=== PATIENT | female | born 1930 | race Caucasian/White ===

== ENCOUNTER 2017-11-08 09:10 | Outpatient (CLI) | payer MEDICARE | END 2017-11-08 09:11 | disposition home or self-care (01) | LOC: BICMAMMO 09:10 | PROVIDERS: ATTEND Family Medicine | DX: Z12.31 Encounter for screening mammogram for malignant neoplasm of breast (principal); R92.1 Mammographic calcification found on diagnostic imaging of breast | CPT/HCPCS: 77063; 77067 ==

== ENCOUNTER 2018-11-21 13:02 | Outpatient (CLI) | payer MEDICARE ==
--- NOTE | 2018-11-21 14:00 | BD ---
EXAM: DEXA bone density examination HISTORY: 88-year-old postmenopausal female for screening COMPARISON: None FINDINGS: L1--bone mineral density 0.768 g/sq cm; T score -2.0 L2--bone mineral density 0.893 g/sq cm; T score -1.2 L3--bone mineral density 0.920 g/sq cm; T score -1.5 L4--bone mineral density 0.960 g/sq cm; T score -0.9 Total L1-L4--bone mineral density 0.891 g/sq cm; T score -1.4 Left femoral neck--bone mineral density0.660; T score -1.7 Total proximal left femur--bone mineral density 0.776; T score -1.4 IMPRESSION: Osteopenia This patient has a 10 year WHO fracture risk of a major osteoporotic fracture of 13% and of a hip fracture of 3.8%.
--- NOTE | 2018-11-21 15:27 | MMO ---
Bilateral MAMMO Bilat Screen [facility]. CLINICAL HISTORY: Patient is 88 years old and is seen for screening. The patient has no family history of breast cancer. The patient has no personal history of cancer. VIEWS: The views performed were: bilateral craniocaudal with tomosynthesis and bilateral mediolateral oblique with tomosynthesis. FILMS COMPARED: The present examination has been compared to prior imaging studies performed at [facility] on 10/28/2014, 10/31/2015, 11/02/2016 and 11/08/2017. MAMMOGRAM FINDINGS: The breasts are heterogeneously dense, which could obscure a lesion on mammography. Benign calcifications are noted bilaterally. There are no suspicious masses, suspicious calcifications, or new areas of architectural distortion. IMPRESSION: A ROUTINE FOLLOW-UP MAMMOGRAM IN 1 YEAR IS RECOMMENDED. THE RESULTS OF THIS EXAM WERE SENT TO THE PATIENT. ACR BI-RADS Category 2 - Benign finding MAMMOGRAPHY NOTE: 1. A negative mammogram report should not delay a biopsy if a dominant of clinically suspicious mass is present. 2. Approximately 10% to 15% of breast cancers are not detected by mammography. 3. Adenosis and dense breasts may obscure an underlying neoplasm.
== END 2018-11-21 13:03 | disposition home or self-care (01) ==
LOC: BICMAMMO 13:02
PROVIDERS: ATTEND Family Medicine
DX: Z12.31 Encounter for screening mammogram for malignant neoplasm of breast (principal); Z13.820 Encounter for screening for osteoporosis; M85.89 Other specified disorders of bone density and structure, multiple sites
CPT/HCPCS: 77063; 77067; 77080

== ENCOUNTER 2019-01-11 07:45 | Outpatient (CLI) | payer MEDICARE ==
--- NOTE | 2019-01-11 09:59 | ULT ---
PELVIC ULTRASOUND: History: Post-menopausal bleeding. FINDINGS: Multiple transabdominal and endovaginal sonographic images of the pelvis were obtained. The ovaries are not visualized on endovaginal or transabdominal imaging. The uterus is only seen on e ndovaginal imaging and demonstrates a slightly heterogeneous appearance and measures 5.8 cm x 3.1 x 2 .3 cm. The endometrial stripe measures 0.4 cm in thickness, but there is fluid seen within the endome trial canal which is abnormal in a post-menopausal female patient. The cervix is not well evaluated o n this examination, but there is heterogeneity in the region of the cervix and a lesion in this regio n cannot be entirely excluded based on provided images. Area of heterogeneity in the region of the ce rvix measures 1.8 cm in greatest dimensions. There are prominent tubular anechoic structures seen adjacent to the uterus bilaterally which do demo nstrate flow on color flow evaluation and are most compatible with mildly dilated pelvic vasculature. No adnexal mass is appreciated. There is no free fluid in the pelvis. IMPRESSION: 1. Fluid in the endometrial canal which is abnormal in a post-menopausal female patient. 2. Heterogeneous mass like area in the region of the cervix measuring 1.8 cm. 3. Nonvisualization of the bilateral ovaries. 4. Dilated and tortuous vasculature within the pelvis bilaterally. Follow up CT scan examination may be beneficial. 5. [employer] consultation is recommended for further evaluation of questioned cervical lesion in additio n to fluid in the endometrial canal which is abnormal in a post-menopausal female patient, and neopla stic process should be excluded. 6. Nonvisualization of the bilateral ovaries. POS: [facility]
== END 2019-01-11 07:46 | disposition home or self-care (01) ==
LOC: BICULT 07:45
PROVIDERS: ATTEND Family Medicine
DX: N95.0 Postmenopausal bleeding (principal); I87.8 Other specified disorders of veins; R93.89 Abnormal findings on diagnostic imaging of other specified body structures
CPT/HCPCS: 76856

== ENCOUNTER 2019-12-31 08:59 | Outpatient (CLI) | payer MEDICARE ==
--- NOTE | 2019-12-31 10:03 | MMO ---
Bilateral MAMMO Bilat Screen [facility]. CLINICAL HISTORY: Patient is 89 years old and is seen for screening. The patient has no family history of breast cancer. The patient has no personal history of cancer. VIEWS: The views performed were: bilateral craniocaudal with tomosynthesis and bilateral mediolateral oblique with tomosynthesis. FILMS COMPARED: The present examination has been compared to prior imaging studies performed at [facility] on 10/31/2015, 11/02/2016, 11/08/2017 and 11/21/2018. This study has been interpreted with the assistance of computer-aided detection. MAMMOGRAM FINDINGS: There are scattered fibroglandular densities. There are stable benign appearing calcifications seen in both breasts. There are no suspicious masses, suspicious calcifications, or new areas of architectural distortion. IMPRESSION: THERE IS NO MAMMOGRAPHIC EVIDENCE OF MALIGNANCY. A ROUTINE FOLLOW-UP MAMMOGRAM IN 1 YEAR IS RECOMMENDED. THE RESULTS OF THIS EXAM WERE SENT TO THE PATIENT. ACR BI-RADS Category 2 - Benign finding MAMMOGRAPHY NOTE: 1. A negative mammogram report should not delay a biopsy if a dominant of clinically suspicious mass is present. 2. Approximately 10% to 15% of breast cancers are not detected by mammography. 3. Adenosis and dense breasts may obscure an underlying neoplasm. Reported by: DAVID CONTE MD Electonically Signed: [id number]
== END 2019-12-31 09:00 | disposition home or self-care (01) ==
LOC: BICMAMMO 08:59
PROVIDERS: ATTEND Family Medicine
DX: Z12.31 Encounter for screening mammogram for malignant neoplasm of breast (principal)
CPT/HCPCS: 77063; 77067

== ENCOUNTER 2020-06-13 22:39 | Emergency (ER) | payer MEDICARE ==
[2020-06-13] MEDS ORDERED: Oxymetazoline HCl 0.05% (30 ML BOT) ONE (23:09)
[2020-06-13 23:28] LABS: #Eosinphils 0.1 thou/uL (0.0-0.7); #Lymphocytes 1.2 thou/uL (1.20-3.40); #Monocytes 0.8 thou/uL (0.11-0.59); #Neutrophils 5.4 thou/uL (1.40-6.50); %Basophils 0.5 % (0.0-1.0); %Eosinophils 1.7 % (0.0-10.0); %Lymphocytes 16.4 % (21.0-51.0); %Monocytes 10.1 % (0.0-10.0); %Neutrophils 71.3 % (42.0-75.0); Mean Corpuscular HGB CONC 32.4 g/dL (32.0-36.0); Mean Corpuscular Hemoglobin 31.7 pg (27.0-31.0); Mean Corpuscular Volume 97.7 fL (78.0-98.0); Mean Platelet Volume 8.3 fL (7.4-10.4); Platelet Count 142 thou/uL (130-400); RBC Distribution Width 14.6 % (11.5-14.5); Red Blood Cell (RBC) Count 3.79 mill/uL (4.20-5.40); White Blood Cell (WBC) Count 7.6 thou/uL (4.8-10.8)
[2020-06-13 23:35] LABS: INR-International Normal Ratio 1.9; PTT 39.5 sec (22.9-36.1); Prothrombin Time 22.3 sec (12.0-14.7)
== END 2020-06-14 00:03 | disposition home or self-care (01) ==
LOC: ERS 22:39
DX: R04.0 Epistaxis (principal); Z79.01 Long term (current) use of anticoagulants; I10 Essential (primary) hypertension; E03.9 Hypothyroidism, unspecified; I48.91 Unspecified atrial fibrillation; G47.30 Sleep apnea, unspecified; Z79.899 Other long term (current) drug therapy
CPT/HCPCS: 36415; 85025; 85610; 85730; 99283

== ENCOUNTER 2020-12-10 09:56 | Inpatient (IN) | payer MEDICARE ==
[2020-12-10 11:41] LABS: #Eosinphils 0.1 thou/uL (0.0-0.7); #Lymphocytes 0.8 thou/uL (1.20-3.40); #Monocytes 1.3 thou/uL (0.11-0.59); #Neutrophils 6.7 thou/uL (1.40-6.50); %Basophils 0.2 % (0.0-1.0); %Eosinophils 1.6 % (0.0-10.0); %Lymphocytes 9.1 % (21.0-51.0); %Monocytes 14.3 % (0.0-10.0); %Neutrophils 74.7 % (42.0-75.0); Hemoglobin 12.2 g/dL (12.0-16.0); Mean Corpuscular HGB CONC 31.9 g/dL (32.0-36.0); Mean Corpuscular Hemoglobin 30.7 pg (27.0-31.0); Mean Corpuscular Volume 96.3 fL (78.0-98.0); Mean Platelet Volume 7.5 fL (7.4-10.4); Platelet Count 185 thou/uL (130-400); RBC Distribution Width 14.5 % (11.5-14.5); Red Blood Cell (RBC) Count 3.97 mill/uL (4.20-5.40); White Blood Cell (WBC) Count 8.9 thou/uL (4.8-10.8)
[2020-12-10 12:04] LABS: ALT (SGPT) 16 U/L (8-55); AST (SGOT) 23 U/L (5-34); Albumin 3.4 g/dL (3.4-4.8); Alkaline Phosphatase 170 U/L (40-110); Anion Gap 9 mmol/L (10-20); BUN (Urea Nitrogen) 12 mg/dL (9.8-20.1); Bilirubin, Total 1.1 mg/dL (0.2-1.2); Calc. Creatinine Clearance 0 mL/min (70-130); Calcium 9.3 mg/dL (7.8-10.44); Carbon Dioxide 32 mmol/L (23-31); Chloride 87 mmol/L (98-107); Globulin 3.2 g/dL (2.4-3.5); Glucose 121 mg/dL (83-110); Protein, Total 6.6 g/dL (5.8-8.1); Sodium 123 mmol/L (136-145)
[2020-12-10] MEDS ORDERED: Ondansetron PF 4 MG/2 ML Vial IVP PRN (13:47)
[2020-12-10] MEDS ORDERED: Senokot S 8.6-50 MG TAB PO PRN (13:47)
[2020-12-10] MEDS ORDERED: Acetaminophen 325 MG TAB PO PRN (13:47)
[2020-12-10] MEDS ORDERED: Iopamidol 370 76% 100 ML VIAL ONE (13:56)
[2020-12-10] MEDS ORDERED: Furosemide 40 MG/4 ML VIAL SLOW IVP SCH (14:00)
[2020-12-10] MEDS ORDERED: Furosemide 40 MG/4 ML VIAL ONE (14:44)
[2020-12-10 16:36] LABS: INR-International Normal Ratio 3.4; Prothrombin Time 34.9 sec (12.0-14.7)
[2020-12-10 16:37] LABS: PTT 53.3 sec (22.9-36.1)
[2020-12-10 20:43] LABS: RBC Count-Automated (BF) 979 /cu.mm; WBC/Nucleated-Auto (BF) 110 uL
[2020-12-10 20:45] LABS: Fluid, Triglycerides 19 mg/dL (Not Available); Pleural Fluid, Amylase Less than 30 U/L (Not Available); Pleural Fluid, Glucose 121 mg/dL; Pleural Fluid, LDH 78 U/L (Not Available); Pleural Fluid, Protein 2.8 g/dL
[2020-12-10 20:48] LABS: Bilirubin Negative (Negative); Blood, Urine 1+ (Negative); Clarity Clear (Clear); Glucose, Urine (Dipstick) Normal (Negative); Ketone, Urine Negative (Negative); Leukocyte 75 Leu/uL (Negative); Nitrite Negative (Negative); Protein, Urine (Dipstick) Negative (Neg-Trace); Specific Gravity, Urine 1.023 (1.002-1.036)
[2020-12-10 20:50] LABS: Bacteria/HPF 1+ HPF (None Seen)
[2020-12-10 21:45] LABS: BF Color Yellow; Body Fluid Source Thoracentesis Fluid; Clarity Clear (Clear); Tube # 1
[2020-12-10 21:47] LABS: BF Segmented Neutrophils 15 %; Cell Count Non Hematic 31 %; Lymphocytes 54 %
[2020-12-10] MEDS: Carvedilol 6.25 MG TAB PO SCH (21:47)
[2020-12-11 06:05] LABS: Band 1 % (5-11); Hemoglobin 12.5 g/dL (12.0-16.0); Lymphocytes 8 % (21-51); MDiff Complete? YES; Mean Platelet Volume 8.2 fL (7.4-10.4); Monocytes 10 % (0-10); Neutrophil 79 % (42-75); Platelet Count 140 thou/uL (130-400); RBC Distribution Width 14.6 % (11.5-14.5); Red Blood Cell (RBC) Count 3.91 mill/uL (4.20-5.40); White Blood Cell (WBC) Count 8.9 thou/uL (4.8-10.8)
[2020-12-11 06:06] LABS: Eosinophils 2 % (0-10); Platelet Morphology Comment Appears Adequate; RBC Morphology Normal
[2020-12-11] MEDS ORDERED: Furosemide 40 MG/4 ML VIAL SLOW IVP SCH (09:00)
[2020-12-11] MEDS ORDERED: Digoxin 0.125 MG TAB PO SCH ×2 (09:00)
[2020-12-11] MEDS ORDERED: Furosemide 40 MG TAB PO SCH (09:00)
[2020-12-11 09:19] LABS: Anion Gap 11 mmol/L (10-20); BUN (Urea Nitrogen) 10 mg/dL (9.8-20.1); Calc. Creatinine Clearance 67 mL/min (70-130); Calcium 9.3 mg/dL (7.8-10.44); Carbon Dioxide 32 mmol/L (23-31); Chloride 90 mmol/L (98-107); Glucose 95 mg/dL (83-110); Potassium 4.6 mmol/L (3.5-5.1); Sodium 128 mmol/L (136-145)
[2020-12-11] MEDS: Carvedilol 6.25 MG TAB PO SCH ×2 (09:38→20:13)
[2020-12-11] MEDS: Potassium Chloride 20 MEQ TAB PO SCH (09:38)
[2020-12-11] MEDS: Amlodipine 5 MG TAB PO SCH (09:41)
[2020-12-11] MEDS: Lisinopril 20 MG TAB PO SCH (09:42)
[2020-12-11] MEDS ORDERED: Warfarin Sodium 7.5 MG TAB PO SCH (17:00)
[2020-12-12 05:22] LABS: Mean Corpuscular HGB CONC 32.3 g/dL (32.0-36.0); Mean Corpuscular Hemoglobin 31.5 pg (27.0-31.0); Mean Corpuscular Volume 97.4 fL (78.0-98.0); Mean Platelet Volume 7.7 fL (7.4-10.4); Platelet Count 163 thou/uL (130-400); RBC Distribution Width 14.4 % (11.5-14.5)
[2020-12-12 05:59] LABS: Anion Gap 11 mmol/L (10-20); BUN (Urea Nitrogen) 14 mg/dL (9.8-20.1); Calc. Creatinine Clearance 72 mL/min (70-130); Carbon Dioxide 28 mmol/L (23-31); Chloride 92 mmol/L (98-107); Glucose 100 mg/dL (83-110); Potassium 5.1 mmol/L (3.5-5.1); Sodium 126 mmol/L (136-145)
[2020-12-12 06:06] LABS: Band 4 % (5-11); Lymphocytes 14 % (21-51); MDiff Complete? YES; Monocytes 11 % (0-10); Neutrophil 71 % (42-75)
[2020-12-12 07:36] LABS: INR-International Normal Ratio 2.2; Prothrombin Time 24.7 sec (12.0-14.7)
[2020-12-12] MEDS: Digoxin 0.125 MG TAB PO SCH (09:13)
[2020-12-12] MEDS: Amlodipine 5 MG TAB PO SCH (09:13)
[2020-12-12] MEDS: Carvedilol 6.25 MG TAB PO SCH ×2 (09:14→19:37)
[2020-12-12] MEDS: Lisinopril 20 MG TAB PO SCH (09:14)
[2020-12-12] MEDS ORDERED: Furosemide 40 MG/4 ML VIAL SLOW IVP SCH (09:15)
[2020-12-12] MEDS: Potassium Chloride 20 MEQ TAB PO SCH (09:15)
[2020-12-12] MEDS ORDERED: Warfarin Sodium 7.5 MG TAB PO SCH (17:00)
[2020-12-13 05:41] LABS: Hemoglobin 11.4 g/dL (12.0-16.0); Mean Corpuscular HGB CONC 32.1 g/dL (32.0-36.0); Mean Corpuscular Hemoglobin 31.6 pg (27.0-31.0); Mean Corpuscular Volume 98.5 fL (78.0-98.0); Mean Platelet Volume 7.7 fL (7.4-10.4); Platelet Count 156 thou/uL (130-400); RBC Distribution Width 14.4 % (11.5-14.5); Red Blood Cell (RBC) Count 3.61 mill/uL (4.20-5.40); White Blood Cell (WBC) Count 9.9 thou/uL (4.8-10.8)
[2020-12-13 05:43] LABS: INR-International Normal Ratio 1.5; Prothrombin Time 18.2 sec (12.0-14.7)
[2020-12-13 05:45] LABS: Anion Gap 9 mmol/L (10-20); BUN (Urea Nitrogen) 16 mg/dL (9.8-20.1); Calc. Creatinine Clearance 71 mL/min (70-130); Calcium 9.6 mg/dL (7.8-10.44); Carbon Dioxide 34 mmol/L (23-31); Chloride 89 mmol/L (98-107); Glucose 110 mg/dL (83-110); Sodium 127 mmol/L (136-145)
[2020-12-13 06:11] LABS: Band 8 % (5-11); Eosinophils 1 % (0-10); Lymphocytes 15 % (21-51); MDiff Complete? YES; Monocytes 7 % (0-10); Neutrophil 68 % (42-75)
[2020-12-13] MEDS ORDERED: Furosemide 40 MG/4 ML VIAL SLOW IVP SCH (07:45)
[2020-12-13] MEDS: Digoxin 0.125 MG TAB PO SCH (07:47)
[2020-12-13] MEDS: Amlodipine 5 MG TAB PO SCH (09:00)
[2020-12-13] MEDS: Carvedilol 6.25 MG TAB PO SCH ×2 (09:00→21:56)
[2020-12-13] MEDS: Lisinopril 20 MG TAB PO SCH (09:00)
[2020-12-13] MEDS: Potassium Chloride 20 MEQ TAB PO SCH (09:00)
[2020-12-13] MEDS ORDERED: Alendronate Sodium 70 mg Tablet PO SCH (15:00)
[2020-12-13] MEDS ORDERED: Warfarin Sodium 3 MG TAB PO SCH (17:00)
[2020-12-13] MEDS ORDERED: Furosemide 20 MG/2 ML VIAL SLOW IVP SCH (17:45)
[2020-12-14] MEDS ORDERED: Furosemide 20 MG/2 ML VIAL SLOW IVP SCH ×2 (01:00→08:45)
[2020-12-14 05:39] LABS: #Basophils 0.1 thou/uL (0.0-0.2); #Eosinphils 0.1 thou/uL (0.0-0.7); #Lymphocytes 0.8 thou/uL (1.20-3.40); #Monocytes 1.3 thou/uL (0.11-0.59); #Neutrophils 10.9 thou/uL (1.40-6.50); %Basophils 0.4 % (0.0-1.0); %Eosinophils 0.4 % (0.0-10.0); %Monocytes 10.1 % (0.0-10.0); Hemoglobin 12.5 g/dL (12.0-16.0); Mean Corpuscular HGB CONC 30.8 g/dL (32.0-36.0); Mean Corpuscular Hemoglobin 30.7 pg (27.0-31.0); Mean Corpuscular Volume 99.7 fL (78.0-98.0); Mean Platelet Volume 7.3 fL (7.4-10.4); Platelet Count 158 thou/uL (130-400); RBC Distribution Width 14.4 % (11.5-14.5); Red Blood Cell (RBC) Count 4.07 mill/uL (4.20-5.40); White Blood Cell (WBC) Count 13.2 thou/uL (4.8-10.8)
[2020-12-14 05:46] LABS: INR-International Normal Ratio 1.7; Prothrombin Time 20.1 sec (12.0-14.7)
[2020-12-14 06:01] LABS: Anion Gap 10 mmol/L (10-20); BUN (Urea Nitrogen) 17 mg/dL (9.8-20.1); Calc. Creatinine Clearance 70 mL/min (70-130); Calcium 9.5 mg/dL (7.8-10.44); Carbon Dioxide 32 mmol/L (23-31); Chloride 89 mmol/L (98-107); Glucose 135 mg/dL (83-110); Potassium 5.1 mmol/L (3.5-5.1); Sodium 126 mmol/L (136-145)
[2020-12-14] MEDS: Digoxin 0.125 MG TAB PO SCH (09:38)
[2020-12-14] MEDS: Cefepime 2 GM in Sodium Chloride 0.9% 100 ML IVPB SCH ×2 (09:38→16:30)
[2020-12-14] MEDS: Potassium Chloride 20 MEQ TAB PO SCH (09:39)
[2020-12-14] MEDS: Furosemide 40 MG/4 ML VIAL SLOW IVP SCH (09:39)
[2020-12-14] MEDS: Carvedilol 6.25 MG TAB PO SCH ×2 (09:39→21:38)
[2020-12-14] MEDS: Amlodipine 5 MG TAB PO SCH (09:40)
[2020-12-14] MEDS: Lisinopril 20 MG TAB PO SCH (09:40)
[2020-12-14 12:10] LABS: Squamous Epithelial 0-3 HPF (0-3); WBC/HPF 0-3 HPF (0-3)
[2020-12-14 12:11] LABS: Bacteria/HPF 1+ HPF (None Seen)
[2020-12-14] MEDS: Warfarin Sodium 7.5 MG TAB PO SCH (16:26)
[2020-12-15] MEDS: Cefepime 2 GM in Sodium Chloride 0.9% 100 ML IVPB SCH ×4 (00:30→23:20)
[2020-12-15] MEDS: Carvedilol 6.25 MG TAB PO SCH ×4 (01:07→21:49)
[2020-12-15 04:55] LABS: #Eosinphils 0.2 thou/uL (0.0-0.7); #Monocytes 1.1 thou/uL (0.11-0.59); #Neutrophils 6.4 thou/uL (1.40-6.50); %Basophils 0.4 % (0.0-1.0); %Eosinophils 2.6 % (0.0-10.0); %Lymphocytes 10.9 % (21.0-51.0); %Neutrophils 73.1 % (42.0-75.0); Hemoglobin 11.7 g/dL (12.0-16.0); Mean Corpuscular Hemoglobin 31.2 pg (27.0-31.0); Mean Platelet Volume 7.7 fL (7.4-10.4); Platelet Count 141 thou/uL (130-400); RBC Distribution Width 14.4 % (11.5-14.5); Red Blood Cell (RBC) Count 3.74 mill/uL (4.20-5.40); White Blood Cell (WBC) Count 8.8 thou/uL (4.8-10.8)
[2020-12-15 05:06] LABS: INR-International Normal Ratio 2.4
[2020-12-15 05:16] LABS: Anion Gap 9 mmol/L (10-20); BUN (Urea Nitrogen) 25 mg/dL (9.8-20.1); Calc. Creatinine Clearance 64 mL/min (70-130); Calcium 9.7 mg/dL (7.8-10.44); Carbon Dioxide 35 mmol/L (23-31); Chloride 92 mmol/L (98-107); Glucose 106 mg/dL (83-110); Potassium 5.6 mmol/L (3.5-5.1); Sodium 130 mmol/L (136-145)
[2020-12-15] MEDS: Digoxin 0.125 MG TAB PO SCH (06:45)
[2020-12-15] MEDS: Amlodipine 5 MG TAB PO SCH (08:54)
[2020-12-15] MEDS: Lisinopril 20 MG TAB PO SCH (08:56)
[2020-12-15] MEDS: Furosemide 40 MG/4 ML VIAL SLOW IVP SCH (08:58)
[2020-12-15] MEDS: Potassium Chloride 20 MEQ TAB PO SCH (09:05)
[2020-12-15] MEDS ORDERED: Lactated Ringer's 500 ML IV SCH (12:45)
[2020-12-15] MEDS: Warfarin Sodium 7.5 MG TAB PO SCH (16:20)
[2020-12-15] MEDS ORDERED: Phytonadione 10 MG/ML AMP SC SCH (17:00)
[2020-12-15] MEDS ORDERED: Warfarin Sodium 10 MG TAB PO SCH (17:00)
[2020-12-16 05:19] LABS: #Eosinphils 0.2 thou/uL (0.0-0.7); #Lymphocytes 0.7 thou/uL (1.20-3.40); #Monocytes 1.1 thou/uL (0.11-0.59); #Neutrophils 6.2 thou/uL (1.40-6.50); %Basophils 0.6 % (0.0-1.0); %Eosinophils 2.2 % (0.0-10.0); %Lymphocytes 8.7 % (21.0-51.0); %Monocytes 13.6 % (0.0-10.0); Hemoglobin 11.7 g/dL (12.0-16.0); Mean Corpuscular HGB CONC 31.5 g/dL (32.0-36.0); Mean Corpuscular Hemoglobin 31.3 pg (27.0-31.0); Mean Corpuscular Volume 99.4 fL (78.0-98.0); Mean Platelet Volume 7.5 fL (7.4-10.4); Platelet Count 133 thou/uL (130-400); RBC Distribution Width 14.2 % (11.5-14.5); Red Blood Cell (RBC) Count 3.75 mill/uL (4.20-5.40); White Blood Cell (WBC) Count 8.2 thou/uL (4.8-10.8)
[2020-12-16 05:26] LABS: INR-International Normal Ratio 1.9
[2020-12-16 05:48] LABS: Anion Gap 10 mmol/L (10-20); BUN (Urea Nitrogen) 25 mg/dL (9.8-20.1); Calc. Creatinine Clearance 67 mL/min (70-130); Calcium 9.9 mg/dL (7.8-10.44); Carbon Dioxide 34 mmol/L (23-31); Chloride 92 mmol/L (98-107); Glucose 104 mg/dL (83-110); Potassium 5.3 mmol/L (3.5-5.1); Sodium 131 mmol/L (136-145)
[2020-12-16] MEDS ORDERED: Fentanyl 100 MCG/2 ML VIAL ONE (09:07)
[2020-12-16] MEDS ORDERED: PROPOFOL 200 MG/20 ML VIAL ONE (09:19)
[2020-12-16] MEDS ORDERED: Bupivacaine PF 0.5% 30 ML VIAL ONE (09:24)
[2020-12-16] MEDS ORDERED: EPINEPHrine 1 MG/ML AMP ONE (09:24)
[2020-12-16] MEDS: Cefepime 2 GM in Sodium Chloride 0.9% 100 ML IVPB SCH ×2 (09:27→16:41)
[2020-12-16] MEDS ORDERED: traMADol HCl 50 MG TAB PO PRN (09:58)
[2020-12-16] MEDS: Carvedilol 6.25 MG TAB PO SCH ×2 (12:55→23:28)
[2020-12-16] MEDS: Furosemide 40 MG/4 ML VIAL SLOW IVP SCH (12:56)
[2020-12-16] MEDS: Digoxin 0.125 MG TAB PO SCH (12:56)
[2020-12-16] MEDS ORDERED: Warfarin Sodium 5 MG TAB PO SCH (17:00)
[2020-12-16 20:58] LABS: Actual Bicarbonate (HCO3a) 43.6 mEq/L (22-28); Base Excess (BEa) 15.2 mEq/L (-2.0 to +3.0); Calcium, Ionized (arterial) 1.27 mmol/L (1.12-1.30); Carboxyhemoglobin (COHb) 1.7 gm% (0.0-3.0); O2 Tension (PaO2), arterial 91.4 mmHg (> 60.0); Potassium - ABG Lab 4.72 mmol/L (3.70-5.30); pH, Arterial 7.38 (7.35-7.45)
[2020-12-16 21:01] LABS: Puncture Site RRA
[2020-12-17 00:01] LABS: Actual Bicarbonate (HCO3a) 39.5 mEq/L (22-28); Base Excess (BEa) 11.1 mEq/L (-2.0 to +3.0); Calcium, Ionized (arterial) 1.28 mmol/L (1.12-1.30); Carboxyhemoglobin (COHb) 1.3 gm% (0.0-3.0); Hemoglobin (Hb) 11.5 g/dL (12.0-16.0); O2 Tension (PaO2), arterial 132.7 mmHg (> 60.0); Potassium - ABG Lab 4.56 mmol/L (3.70-5.30); pH, Arterial 7.34 (7.35-7.45)
[2020-12-17 00:04] LABS: CO2 Tension 74.5 mmHg (35.0-45.0)
[2020-12-17 00:05] LABS: ALV-art Gradient 59.375 mmHg (0-20); Puncture Site RRA
[2020-12-17] MEDS: Cefepime 2 GM in Sodium Chloride 0.9% 100 ML IVPB SCH ×2 (05:44→11:48)
[2020-12-17] MEDS ORDERED: Furosemide 20 MG TAB PO SCH (09:00)
[2020-12-17 09:11] LABS: #Basophils 0.1 thou/uL (0.0-0.2); #Eosinphils 0.1 thou/uL (0.0-0.7); #Lymphocytes 0.7 thou/uL (1.20-3.40); #Monocytes 1.2 thou/uL (0.11-0.59); #Neutrophils 6.4 thou/uL (1.40-6.50); %Basophils 0.8 % (0.0-1.0); %Eosinophils 1.6 % (0.0-10.0); %Lymphocytes 7.9 % (21.0-51.0); %Monocytes 13.9 % (0.0-10.0); %Neutrophils 75.8 % (42.0-75.0); Hemoglobin 11.4 g/dL (12.0-16.0); Mean Corpuscular HGB CONC 31.7 g/dL (32.0-36.0); Mean Corpuscular Hemoglobin 31.6 pg (27.0-31.0); Mean Corpuscular Volume 99.6 fL (78.0-98.0); Mean Platelet Volume 7.3 fL (7.4-10.4); Platelet Count 128 thou/uL (130-400); Red Blood Cell (RBC) Count 3.61 mill/uL (4.20-5.40); White Blood Cell (WBC) Count 8.4 thou/uL (4.8-10.8)
[2020-12-17 09:22] LABS: INR-International Normal Ratio 1.3; Prothrombin Time 16.6 sec (12.0-14.7)
[2020-12-17 09:34] LABS: BUN (Urea Nitrogen) 22 mg/dL (9.8-20.1); Calc. Creatinine Clearance 69 mL/min (70-130); Calcium 9.5 mg/dL (7.8-10.44); Glucose 86 mg/dL (83-110)
[2020-12-17] MEDS: Digoxin 0.125 MG TAB PO SCH (09:39)
[2020-12-17] MEDS: Carvedilol 6.25 MG TAB PO SCH ×2 (09:39→21:41)
[2020-12-17 09:43] LABS: Anion Gap 7 mmol/L (10-20); Chloride 92 mmol/L (98-107); Potassium 4.7 mmol/L (3.5-5.1); Sodium 135 mmol/L (136-145)
[2020-12-17 09:47] LABS: Carbon Dioxide Greater than 37 mmol/L (23-31)
[2020-12-17] MEDS ORDERED: Cefdinir 300 MG CAP PO SCH (10:30)
[2020-12-17] MEDS: Warfarin Sodium 7.5 MG TAB PO SCH (18:06)
[2020-12-17] MEDS: Cefdinir 300 MG CAP PO SCH (21:41)
[2020-12-18 05:40] LABS: #Eosinphils 0.2 thou/uL (0.0-0.7); #Lymphocytes 0.9 thou/uL (1.20-3.40); #Monocytes 1.1 thou/uL (0.11-0.59); #Neutrophils 6.6 thou/uL (1.40-6.50); %Basophils 0.5 % (0.0-1.0); %Eosinophils 2.1 % (0.0-10.0); %Lymphocytes 10.6 % (21.0-51.0); %Monocytes 11.9 % (0.0-10.0); Hemoglobin 10.7 g/dL (12.0-16.0); Mean Corpuscular HGB CONC 31.3 g/dL (32.0-36.0); Mean Corpuscular Hemoglobin 31.1 pg (27.0-31.0); Mean Corpuscular Volume 99.3 fL (78.0-98.0); Mean Platelet Volume 8.1 fL (7.4-10.4); Platelet Count 125 thou/uL (130-400); RBC Distribution Width 13.8 % (11.5-14.5); Red Blood Cell (RBC) Count 3.44 mill/uL (4.20-5.40); White Blood Cell (WBC) Count 8.8 thou/uL (4.8-10.8)
[2020-12-18 05:50] LABS: INR-International Normal Ratio 1.2; Prothrombin Time 15.2 sec (12.0-14.7)
[2020-12-18 06:03] LABS: BUN (Urea Nitrogen) 19 mg/dL (9.8-20.1); Calc. Creatinine Clearance 75 mL/min (70-130); Calcium 9.1 mg/dL (7.8-10.44); Glucose 89 mg/dL (83-110)
[2020-12-18 06:12] LABS: Anion Gap 15 mmol/L (10-20); Carbon Dioxide 34 mmol/L (23-31); Chloride 89 mmol/L (98-107); Potassium 4.6 mmol/L (3.5-5.1); Sodium 133 mmol/L (136-145)
[2020-12-18] MEDS: Carvedilol 6.25 MG TAB PO SCH ×2 (11:13→21:03)
[2020-12-18] MEDS: Digoxin 0.125 MG TAB PO SCH (11:13)
[2020-12-18] MEDS: Cefdinir 300 MG CAP PO SCH ×2 (11:15→21:03)
[2020-12-18] MEDS: acetaZOLAMIDE Sodium 500 mg Vial IVP SCH (11:15)
[2020-12-18 12:29] LABS: Actual Bicarbonate (HCO3a) 42.5 mEq/L (22-28); Base Excess (BEa) 14.1 mEq/L (-2.0 to +3.0); Calcium, Ionized (arterial) 1.29 mmol/L (1.12-1.30); Carboxyhemoglobin (COHb) 1.1 gm% (0.0-3.0); Hemoglobin (Hb) 11.8 g/dL (12.0-16.0); O2 Tension (PaO2), arterial 87.8 mmHg (> 60.0); Potassium - ABG Lab 4.31 mmol/L (3.70-5.30); pH, Arterial 7.37 (7.35-7.45)
[2020-12-18 12:34] LABS: CO2 Tension 75.8 mmHg (35.0-45.0); Puncture Site LRA
[2020-12-18 14:28] VITALS: BMI 28.1
[2020-12-18 17:14] LABS: Actual Bicarbonate (HCO3a) 39.1 mEq/L (22-28); Base Excess (BEa) 11.5 mEq/L (-2.0 to +3.0); Calcium, Ionized (arterial) 1.32 mmol/L (1.12-1.30); Carboxyhemoglobin (COHb) 1.2 gm% (0.0-3.0); Hemoglobin (Hb) 11.7 g/dL (12.0-16.0); O2 Tension (PaO2), arterial 90.2 mmHg (> 60.0); Potassium - ABG Lab 4.01 mmol/L (3.70-5.30); pH, Arterial 7.38 (7.35-7.45)
[2020-12-18 17:33] LABS: ALV-art Gradient 74.725 mmHg (0-20); CO2 Tension 67.7 mmHg (35.0-45.0); Puncture Site RRA
[2020-12-18] MEDS: Warfarin Sodium 7.5 MG TAB PO SCH (17:41)
[2020-12-19 04:03] LABS: #Eosinphils 0.3 thou/uL (0.0-0.7); #Monocytes 1.2 thou/uL (0.11-0.59); #Neutrophils 6.7 thou/uL (1.40-6.50); %Basophils 0.5 % (0.0-1.0); %Eosinophils 2.8 % (0.0-10.0); %Lymphocytes 10.6 % (21.0-51.0); %Monocytes 13.4 % (0.0-10.0); %Neutrophils 72.7 % (42.0-75.0); Hemoglobin 10.6 g/dL (12.0-16.0); Mean Corpuscular HGB CONC 31.2 g/dL (32.0-36.0); Mean Corpuscular Hemoglobin 31.1 pg (27.0-31.0); Mean Corpuscular Volume 99.9 fL (78.0-98.0); Mean Platelet Volume 7.9 fL (7.4-10.4); Platelet Count 132 thou/uL (130-400); RBC Distribution Width 13.8 % (11.5-14.5); White Blood Cell (WBC) Count 9.2 thou/uL (4.8-10.8)
[2020-12-19 04:11] LABS: INR-International Normal Ratio 1.4; Prothrombin Time 16.9 sec (12.0-14.7)
[2020-12-19 04:23] LABS: Anion Gap 9 mmol/L (10-20); BUN (Urea Nitrogen) 20 mg/dL (9.8-20.1); Calc. Creatinine Clearance 62 mL/min (70-130); Calcium 9.6 mg/dL (7.8-10.44); Carbon Dioxide 35 mmol/L (23-31); Chloride 93 mmol/L (98-107); Glucose 116 mg/dL (83-110); Potassium 4.2 mmol/L (3.5-5.1); Sodium 133 mmol/L (136-145)
[2020-12-19] MEDS: Digoxin 0.125 MG TAB PO SCH (08:28)
[2020-12-19] MEDS: Carvedilol 6.25 MG TAB PO SCH ×2 (08:28→20:55)
[2020-12-19] MEDS: Cefdinir 300 MG CAP PO SCH ×2 (08:29→21:04)
[2020-12-19] MEDS: acetaZOLAMIDE Sodium 500 mg Vial IVP SCH (08:29)
[2020-12-19 08:30] VITALS: BP 154/65
[2020-12-19] MEDS: Warfarin Sodium 7.5 MG TAB PO SCH (17:50)
[2020-12-20 04:04] LABS: #Eosinphils 0.5 thou/uL (0.0-0.7); #Monocytes 1.3 thou/uL (0.11-0.59); #Neutrophils 7.2 thou/uL (1.40-6.50); %Basophils 0.4 % (0.0-1.0); %Eosinophils 4.6 % (0.0-10.0); %Monocytes 12.6 % (0.0-10.0); %Neutrophils 72.4 % (42.0-75.0); Hemoglobin 10.9 g/dL (12.0-16.0); Mean Corpuscular HGB CONC 31.5 g/dL (32.0-36.0); Mean Corpuscular Hemoglobin 31.4 pg (27.0-31.0); Mean Corpuscular Volume 99.7 fL (78.0-98.0); Mean Platelet Volume 7.9 fL (7.4-10.4); Platelet Count 149 thou/uL (130-400); RBC Distribution Width 13.9 % (11.5-14.5); Red Blood Cell (RBC) Count 3.47 mill/uL (4.20-5.40); White Blood Cell (WBC) Count 9.9 thou/uL (4.8-10.8)
[2020-12-20 04:18] LABS: INR-International Normal Ratio 1.6; Prothrombin Time 19.3 sec (12.0-14.7)
[2020-12-20 04:24] LABS: Anion Gap 6 mmol/L (10-20); BUN (Urea Nitrogen) 30 mg/dL (9.8-20.1); Calc. Creatinine Clearance 72 mL/min (70-130); Calcium 10.4 mg/dL (7.8-10.44); Carbon Dioxide 37 mmol/L (23-31); Chloride 93 mmol/L (98-107); Glucose 124 mg/dL (83-110); Potassium 4.5 mmol/L (3.5-5.1); Sodium 131 mmol/L (136-145)
[2020-12-20] MEDS: Carvedilol 6.25 MG TAB PO SCH (08:27)
[2020-12-20] MEDS: Cefdinir 300 MG CAP PO SCH (08:30)
[2020-12-20] MEDS: acetaZOLAMIDE Sodium 500 mg Vial IVP SCH (08:30)
[2020-12-20 11:34] VITALS: TEMP 96.8
== END 2020-12-20 14:48 | disposition hospice, home (50) | DRG 291 ==
LOC: ERS 09:56 → ERHOLD 12:50 → 2SE 19:47 → IMCU/EMU 12-17 06:19 → 2SE 12-17 20:30 → IMCU/EMU 12-18 23:05
PROVIDERS: ADMIT Student in an Organized Health Care Education/Training Program; ATTEND Student in an Organized Health Care Education/Training Program
PROC: 0W993ZZ Drainage of Right Pleural Cavity, Percutaneous Approach (ICD-10-PCS; principal; 2020-12-10)
PROC: 30233L1 Transfusion of Nonautologous Fresh Plasma into Peripheral Vein, Percutaneous Approach (ICD-10-PCS; 2020-12-16)
PROC: 30233K1 Transfusion of Nonautologous Frozen Plasma into Peripheral Vein, Percutaneous Approach (ICD-10-PCS; 2020-12-16)
PROC: 0W993ZZ Drainage of Right Pleural Cavity, Percutaneous Approach (ICD-10-PCS; 2020-12-16)
PROC: 5A09457 Assistance with Respiratory Ventilation, 24-96 Consecutive Hours, Continuous Positive Airway Pressure (ICD-10-PCS; 2020-12-17)
DX: I11.0 Hypertensive heart disease with heart failure (principal); J96.21 Acute and chronic respiratory failure with hypoxia; J18.9 Pneumonia, unspecified organism; J96.22 Acute and chronic respiratory failure with hypercapnia; J90 Pleural effusion, not elsewhere classified; E87.1 Hypo-osmolality and hyponatremia; I48.20 Chronic atrial fibrillation, unspecified; Z66 Do not resuscitate; I27.20 Pulmonary hypertension, unspecified; M81.0 Age-related osteoporosis without current pathological fracture; I50.33 Acute on chronic diastolic (congestive) heart failure; G47.33 Obstructive sleep apnea (adult) (pediatric); E11.9 Type 2 diabetes mellitus without complications; E03.9 Hypothyroidism, unspecified; I08.1 Rheumatic disorders of both mitral and tricuspid valves; E87.5 Hyperkalemia; Z88.5 Allergy status to narcotic agent; Z79.899 Other long term (current) drug therapy; Z79.01 Long term (current) use of anticoagulants; Z99.89 Dependence on other enabling machines and devices
CPT/HCPCS: 36415; 36430; 36600; 70450; 71045; 71046; 71260; 74177; 76856; 80048; 80053; 81001; 81015; 82150; 82805; 82945; 83615; 83880; 83986; 84145; 84157; 84443; 84478; 84484; 85025; 85060; 85610; 85730; 86850; 86900; 86901; 87070; 87086; 87116; 87205; 87206; 88112; 88305; 89051; 93005; 93306; 93798; 94640; 94660; 94760; C1729; J0171; J0692; J1120; J1940; J2704; J3010; J3430; J3490; J7620; P9059; Q9967; S0020